=== PATIENT | female | born 1975 | race American Indian/Alaskan Native ===

== ENCOUNTER → 2018-11-18 | Outpatient (CLI) | payer OTHER ==
[~2018-11-18] MED LIST: ACET-1718 PO; FLAX100041 PO; FLU150 PO; LEVO75TA73 PO; MULT-61 PO
--- NOTE | 2018-11-19 08:39 | RADIOLOGY IMAGING REPORT ---
FACILITY: [facility] - [place] PATIENT NAME: JESSICA RAZO : [id number] MR: [id number] V: [id number] EXAM DATE: ORDERING PHYSICIAN: ALEX DANIEL TECHNOLOGIST: Suzanne Sosa PROCEDURE:BILATERAL DIGITAL SCREENING MAMMOGRAM WITH CAD ASSISTED INTERPRETATION & 3D TOMOSYNTHESIS COMPARISON:Prior mammograms 01/25/15, 01/16/15. INDICATIONS:SCREENING FINDINGS: The breasts are heterogeneously dense which can obscure small masses. The parenchymal pattern has remained stable allowing for difference in mammographic technique & patient positioning. DIAGNOSTIC CATEGORY 1--NEGATIVE. RECOMMENDATIONS: ROUTINE MAMMOGRAM AND CLINICAL EVALUATION. IMPRESSION: BIRADS 1: Negative. No significant abnormality is seen. Dictated by: Rachel Syed M.D. on 11/18/2018 at 16:23 Transcribed by: FERNANDO on 11/19/2018 at 7:46 Approved by: Rachel Syed M.D. on 11/19/2018 at 8:38 [facility]
== END ==
LOC: MAMO 00:26
PROVIDERS: ATTEND Family Medicine
DX: Z12.31 Encounter for screening mammogram for malignant neoplasm of breast (principal)
CPT/HCPCS: 77063; 77067

== ENCOUNTER → 2018-12-29 | Outpatient (CLI) | payer OTHER ==
[~2018-12-29] MED LIST changes: +CEPH500T7 PO; +LEVO-3 PO; +SIMV10TA98 PO
== END ==
LOC: LAB 10:09
PROVIDERS: ATTEND Otolaryngology
DX: L72.0 Epidermal cyst (principal)
CPT/HCPCS: 88305

== ENCOUNTER → 2019-02-09 | Outpatient (CLI) | payer OTHER ==
--- NOTE | 2019-02-09 11:25 | RADIOLOGY IMAGING REPORT ---
FACILITY: [facility] PATIENT NAME: Keara Puri : 1975 MR: [id number] V: [id number] EXAM DATE: [id number] ORDERING PHYSICIAN: ALEX DANIEL TECHNOLOGIST: Location: [facility] [place] Patient: Keara Puri : 1975 Visit/Account:[id number] Date of Sevice: 02/09/2019 CT ABDOMEN PELVIS W/O CON HISTORY: Abdomen pain, diarrhea, rectal bleeding, right lower quadrant pain TECHNIQUE: Axial images acquired through the abdomen/pelvis. Coronal and sagittal reformatting also performed. No IV contrast administered.Dose Lowering Technique One of the following dose optimization techniques was utilized in the performance of this exam: Autom ated exposure control; adjustment of the mA and/or kV according to the patient's size; or use of an i terative reconstruction technique. Specific details can be referenced in the facility's radiology C T exam operational policy. COMPARISON: None. FINDINGS: Visualized lung bases: Incompletely imaged is a 3 mm groundglass nodule posterior lateral aspect rig ht lower lobe best seen on image one of series 2 Hepatobiliary: Negative. Spleen: Negative. Adrenals: Negative. Pancreas: Negative. Kidneys ureters and bladder: Negative. Genitalia: There is a 2.5 cm isoechoic mass projecting along the right lateral aspect of the uterus which may represent a fibroid. There is an IUD appears to been good position. GI: There is no evidence of bowel obstruction. The appendix is visualized and does not appear infla med Vessels/spaces/nodes: Several small nonspecific mesenteric lymph nodes in the right lower quadrant Bones/soft tissues: Negative. Additional findings: None pertinent. IMPRESSION: Incompletely imaged is a 3 mm groundglass nodule right lower lobe [employer] FOLLOW-UP GUIDELINES FOR NEWLY DETECTED INCIDENTAL NODULES IN PERSONS 35 YEARS OF AGE OR OLDER. *These recommendations do NOT apply to lung cancer screening, patients with immunosuppression or alcides ents with a known primary malignancy. SOLITARY SOLID NODULE If nodule size is < 6 mm: * Low risk patient ? No routine follow-up. * High risk patient ? Optional CT at 12 months. If nodule size is 6-8 mm: * Low risk patient ? CT at 6-12 months, then consider CT at 18-24 months if no change. * High risk patient ? CT at 6-12 months, then CT at 18-24 months if no change. If nodule size is > 8 mm: * Low risk patient ? Consider CT at 3, 9 and 24 months (if no change), PET/CT, tissue sampling or a combination thereof. * High risk patient ? Consider CT at 3, 9 and 24 months (if no change), PET/CT, tissue sampling, or a combination thereof. LOW RISK PATIENT: Minimal or absent history of tobacco use and of other known risk factors. HIGH RISK PATIENT: Tobacco use, family history of lung cancer, upper pulmonary lobe location of nodul e, presence of emphysema, pulmonary fibrosis, older age. Hannahhoanum H, Laura DP, Natheno JM, et al. Guidelines for Management of Incidental Pulmonary Nodules Dete cted on CT Images: From the [employer] Society 2017. Radiology. uchnipn 2.5 cm isoechoic mass projecting along the right lateral aspect the uterus which may represent a fibr oid IUD appears to been good position The appendix is visualized does not appear inflamed. There is no evidence of urolithiasis or bowel obstruction. Report Dictated By: Rachel Syed MD at 02/09/2019 10:59 AM Report E-Signed By: Rachel Syed MD at 02/09/2019 11:20 AM LILYN:KATIA
== END ==
LOC: CT 01:01
PROVIDERS: ATTEND Family Medicine
DX: R19.09 Other intra-abdominal and pelvic swelling, mass and lump (principal); Z97.5 Presence of (intrauterine) contraceptive device; R91.8 Other nonspecific abnormal finding of lung field
CPT/HCPCS: 74176